=== PATIENT | male | born 1975 | race Caucasian/White ===

== ENCOUNTER 2017-03-08 13:06 | Emergency (ER) | payer SELFPAY ==
[~2017-03-08] VITALS: Ht 193 cm; Wt 124.0 kg
[~2017-03-08 13:06] MED LIST: ALBU2.5V11 INH; ALBU8.5H5 INH
[2017-03-08] MEDS ORDERED: LORazepam 2 MG/ML, 1ML IVPush ONE (14:00)
[2017-03-08] MEDS ORDERED: SODIUM CHLORIDE FLUSH 10ML SYR IVF ONE (14:00)
[2017-03-08 14:19] LABS: BLOOD UREA NITROGEN 15 mg/dL (7-18)
[2017-03-08 14:40] LABS: IS PT STATUS REG ER OR PRE ER? NO
[2017-03-08 16:00] VITALS: BP 139/79
== END 2017-03-08 16:34 | disposition home or self-care (01) ==
LOC: ED 13:55
DX: R07.89 Other chest pain (principal); F41.1 Generalized anxiety disorder; J45.909 Unspecified asthma, uncomplicated; F17.200 Nicotine dependence, unspecified, uncomplicated; Z86.718 Personal history of other venous thrombosis and embolism
CPT/HCPCS: 36415; 71010; 80048; 82040; 84484; 85025; 85379; 93005